=== PATIENT | male | born 2000 | race Caucasian/White ===

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

== ENCOUNTER 2020-04-08 07:27 | Emergency (ER) | payer OTHER ==
[~2020-04-08] VITALS: Ht 177.8 cm; Wt 97.5 kg
[2020-04-08] MEDS ORDERED: BUSPAR15 MG PO (07:47)
[2020-04-08 08:27] LABS: BASO % 0.5 % (0.0-1.0); EOS # 0.6 10*3/uL (0.0-0.4); EOS % 7.1 % (1.0-4.0); HEMATOCRIT 46.8 % (42.0-52.0); LYMPH # 2.1 10*3/uL (1.3-4.4); LYMPH % 26.7 % (27.0-41.0); MEAN CELL VOLUME 86.7 fl (80.0-94.0); MEAN CORPUSCULAR HGB 29.4 pg (27.0-31.0); MEAN PLATELET VOLUME 9.8 fl (9.6-12.3); MONO # 0.8 10*3/uL (0.1-1.0); MONO % 9.8 % (3.0-9.0); NEUT # 4.3 10*3/uL (2.3-7.9); NEUT % 55.1 % (47.0-73.0); PLATELET COUNT AUTOMATED 201 10*3/uL (130-400); RED CELL DISTRI WIDTH 11.9 % (0-14.5); WHITE BLOOD COUNT 7.8 10*3/uL (4.8-10.8)
[2020-04-08 08:44] LABS: ALBUMIN 3.8 gm/dl (3.1-4.5); ALKALINE PHOSPHATASE 96 U/L (45-117); BUN 13 mg/dl (7-24); CHLORIDE 106 mmol/L (98-107); CREATININE 0.97 mg/dL (0.70-1.30); SGOT/AST 19 IU/L (3-35); SGPT/ALT 32 U/L (12-78); SODIUM 138 mmol/L (136-145); TOTAL PROTEIN 7.7 gm/dL (6.4-8.2); URIC ACID 8.1 mg/dL (3.5-7.2)
[2020-04-08] MEDS ORDERED: KEFLEX500 M1 PO (09:35)
[2020-04-08] MEDS ORDERED: DIFLUCAN150 MG PO (09:35)
== END 2020-04-08 09:38 | disposition home or self-care (01) ==
LOC: ED 07:27
PROVIDERS: Emergency Medicine
DX: B35.3 Tinea pedis (principal); J45.909 Unspecified asthma, uncomplicated; Z79.899 Other long term (current) drug therapy

== ENCOUNTER 2021-01-04 21:09 | Emergency (ER) | payer OTHER ==
[~2021-01-04] VITALS: Wt 90.7 kg
[~2021-01-04 21:09] MED LIST changes: +BUSPAR15 MG PO; +DIFLUCAN150 MG PO; +KEFLEX500 M1 PO
[2021-01-04] MEDS ORDERED: NAPROSYN500 MG PO (21:56)
== END 2021-01-04 22:25 | disposition home or self-care (01) ==
LOC: ED 21:09
DX: S93.402A Sprain of unspecified ligament of left ankle, initial encounter (principal); Z79.899 Other long term (current) drug therapy; Z98.890 Other specified postprocedural states; X58.XXXA Exposure to other specified factors, initial encounter; Y93.89 Activity, other specified; Y92.89 Other specified places as the place of occurrence of the external cause; Y99.8 Other external cause status; J45.909 Unspecified asthma, uncomplicated

== ENCOUNTER 2021-08-30 07:25 | Emergency (ER) | payer OTHER ==
[~2021-08-30] VITALS: Wt 90.7 kg
== END 2021-08-30 11:12 | disposition home or self-care (01) ==
LOC: ED 07:25
DX: G43.909 Migraine, unspecified, not intractable, without status migrainosus (principal)

== ENCOUNTER 2021-08-31 21:52 | Emergency (ER) | payer OTHER ==
[~2021-08-31] VITALS: Ht 172.7 cm; Wt 90.7 kg
== END 2021-08-31 23:53 | disposition home or self-care (01) ==
LOC: ED 21:52
DX: G43.909 Migraine, unspecified, not intractable, without status migrainosus (principal)

== ENCOUNTER 2023-04-06 16:51 | Emergency (ER) | payer OTHER ==
[~2023-04-06] VITALS: Ht 175.2 cm; Wt 104.3 kg
[2023-04-06] MEDS ORDERED: PREDNISONE50 MG PO (18:26)
== END 2023-04-06 18:32 | disposition home or self-care (01) ==
LOC: ED 16:51
DX: T63.441A Toxic effect of venom of bees, accidental (unintentional), initial encounter (principal); Z96.22 Myringotomy tube(s) status; R60.0 Localized edema; Y92.89 Other specified places as the place of occurrence of the external cause

== ENCOUNTER 2023-07-12 04:48 | Emergency (ER) | payer OTHER ==
[~2023-07-12] VITALS: Ht 175.2 cm; Wt 104.3 kg
[~2023-07-12 04:48] MED LIST changes: +PREDNISONE50 MG PO
[2023-07-12 06:10] LABS: BASO % 0.6 % (0.0-1.0); EOS # 0.3 10*3/uL (0.0-0.4); EOS % 5.4 % (1.0-4.0); HEMATOCRIT 48.6 % (42.0-52.0); LYMPH # 1.8 10*3/uL (1.3-4.4); LYMPH % 28.8 % (27.0-41.0); MEAN CELL VOLUME 87.7 fl (80.0-94.0); MEAN CORPUSCULAR HGB 29.2 pg (27.0-31.0); MEAN CORPUSCULAR HGB CONC 33.3 g/dl (33.0-37.0); MEAN PLATELET VOLUME 9.7 fl (9.6-12.3); MONO # 0.6 10*3/uL (0.1-1.0); MONO % 9.9 % (3.0-9.0); NEUT # 3.3 10*3/uL (2.3-7.9); NEUT % 53.2 % (47.0-73.0); PLATELET COUNT AUTOMATED 220 10*3/uL (130-400); RED BLOOD COUNT 5.54 10*6/uL (4.50-5.90); WHITE BLOOD COUNT 6.3 10*3/uL (4.8-10.8)
[2023-07-12 06:20] LABS: ALKALINE PHOSPHATASE 80 U/L (46-116); BUN 9 mg/dl (9-23); CHLORIDE 105 mmol/L (98-107); LIPASE 29 U/L (12-53); POTASSIUM 4.2 mmol/L (3.4-5.1); SGPT/ALT 25 U/L (10-49); TOTAL PROTEIN 6.9 gm/dL (6.0-8.0)
[2023-07-12 07:15] LABS: BILIRUBIN Negative (Negative); BLOOD Negative (Negative); CLARITY Clear (Clear); COLOR Yellow (Yellow); GLUCOSE Negative (Negative); KETONE Negative (Negative); LEUKO ESTERASE Negative (Negative); NITRITE Negative (Negative); SPECIFIC GRAVITY >= 1.030 (1.001-1.030); UROBILINOGEN 0.2 E.U./dl (0.0-1.0)
[2023-07-12 07:35] LABS: EPITHELIAL CELLS 0-2; WBC 0-2 wbc/hpf (0-5)
[2023-07-12] MEDS ORDERED: HYDROCODONE-AC1 EAC1 PO (13:43)
== END 2023-07-12 13:51 | disposition home or self-care (01) ==
LOC: ED 04:48
PROVIDERS: Family Medicine
DX: R10.11 Right upper quadrant pain (principal); J45.909 Unspecified asthma, uncomplicated; Z98.890 Other specified postprocedural states; R19.7 Diarrhea, unspecified

== ENCOUNTER 2023-07-19 20:02 | Emergency (ER) | payer OTHER ==
[~2023-07-19] VITALS: Ht 175.2 cm; Wt 104.3 kg
[~2023-07-19 20:02] MED LIST changes: +HYDROCODONE-AC1 EAC1 PO
[2023-07-19 21:04] LABS: BASO % 0.4 % (0.0-1.0); EOS # 0.2 10*3/uL (0.0-0.4); EOS % 3.2 % (1.0-4.0); HEMATOCRIT 45.8 % (42.0-52.0); LYMPH # 2.1 10*3/uL (1.3-4.4); LYMPH % 27.3 % (27.0-41.0); MEAN CELL VOLUME 86.7 fl (80.0-94.0); MEAN CORPUSCULAR HGB 29.4 pg (27.0-31.0); MEAN CORPUSCULAR HGB CONC 33.8 g/dl (33.0-37.0); MEAN PLATELET VOLUME 9.5 fl (9.6-12.3); MONO # 0.6 10*3/uL (0.1-1.0); MONO % 7.2 % (3.0-9.0); NEUT # 4.7 10*3/uL (2.3-7.9); NEUT % 61.2 % (47.0-73.0); PLATELET COUNT AUTOMATED 238 10*3/uL (130-400); RED BLOOD COUNT 5.28 10*6/uL (4.50-5.90); RED CELL DISTRI WIDTH 11.9 % (0-14.5); WHITE BLOOD COUNT 7.6 10*3/uL (4.8-10.8)
[2023-07-19 21:25] LABS: ALKALINE PHOSPHATASE 79 U/L (46-116); BUN 11 mg/dl (9-23); CHLORIDE 107 mmol/L (98-107); LIPASE 26 U/L (12-53); SGPT/ALT 20 U/L (5-49); TOTAL PROTEIN 6.7 gm/dL (6.0-8.0)
== END 2023-07-19 22:27 | disposition home or self-care (01) ==
LOC: ED 20:02
PROVIDERS: Internal Medicine
DX: K82.8 Other specified diseases of gallbladder (principal); R10.11 Right upper quadrant pain; J45.909 Unspecified asthma, uncomplicated; Z98.890 Other specified postprocedural states

== ENCOUNTER 2023-12-21 19:58 | Emergency (ER) | payer OTHER ==
[~2023-12-21] VITALS: Ht 175.2 cm; Wt 104.3 kg
[2023-12-21] MEDS ORDERED: DICYCLOMINE HYD20 MG PO (20:07)
[2023-12-21] MEDS ORDERED: METRONIDAZOLE250 M1 PO (20:07)
[2023-12-21] MEDS ORDERED: ACETAMINOPHEN 325 MG TAB PO ONE (20:20)
[2023-12-21] MEDS ORDERED: ZITHROMAX250 MG PO (23:03)
== END 2023-12-21 21:59 | disposition home or self-care (01) ==
LOC: ED 19:58
DX: B34.9 Viral infection, unspecified (principal); Z20.822 Contact with and (suspected) exposure to COVID-19; Z79.899 Other long term (current) drug therapy; Z96.22 Myringotomy tube(s) status